=== PATIENT | male | born 1945 | race Caucasian/White ===

== ENCOUNTER 2020-10-30 11:08 | Outpatient (CLI) | payer MEDICARE, SELFPAY ==
--- NOTE | ~2020-10-30 | US_ITS ---
EXAMINATION: US scrotum doppler DATE: 10/30/2020 11:55 INDICATION: Scrotal pain and swelling after heavy lifting TECHNIQUE: Testicular sonogram utilizing grayscale and Doppler COMPARISON: None. FINDINGS: The right testis measures 4.2 x 2.6 x 2.8 cm. The left testis measures 4.0 x 2.6 x 3.0 cm. Symmetric normal grayscale appearance to both testes. There is normal vascular flow to both testes. 5 mm anecho ic epididymal cyst at the head of the right epididymis. The right epididymis is otherwise normal with normal vascular flow. The left epididymis is normal with normal vascular flow. There is no varicocel e or right hydrocele. Small mildly complex left hydrocele with a few thin internal septations. There are bilateral fat-containing inguinal hernias on prior CT, the caudal aspect of which appears to be v isible along the left spermatic cord near the base of the scrotum. IMPRESSION: 1. Nonspecific small mildly complex left hydrocele with a few thin internal septations suggesting an exudative process. 2. 5 mm right epididymal cyst. Otherwise normal bilateral epididymides and testes. 3. Bilateral fat-containing inguinal hernias seen on prior CT, the caudal margin of which appears to be visible along the left spermatic cord. Reviewed, dictated and finalized at location A. IMPRESSION: 1. Nonspecific small mildly complex left hydrocele with a few thin internal se ptations suggesting an exudative process. 2. 5 mm right epididymal cyst. Otherwise normal bilateral epididymides and test es. 3. Bilateral fat-containing inguinal hernias seen on prior CT, the caudal ange n of which appears to be visible along the left spermatic cord.
== END 2020-10-30 11:09 | disposition home or self-care (01) ==
LOC: ANHIMG 11:11
PROVIDERS: PCP Internal Medicine; Visit Provider Nurse Practitioner
DX: L72.0 Epidermal cyst (principal); K40.90 Unilateral inguinal hernia, without obstruction or gangrene, not specified as recurrent
CPT/HCPCS: 76870; 93976

== ENCOUNTER 2022-08-21 08:22 | Outpatient (CLI) | payer MEDICARE, SELFPAY ==
--- NOTE | ~2022-08-21 | XR_ITS ---
Left Hand Technique: PA and lateral views were obtained. Clinical History: Pain Findings: No acute fracture or dislocation is seen. There is advanced degenerative change of the thir d, fourth, and fifth DIP joints. There is advanced degenerative change of the first CMC joint. Mild d egenerative change of the PIP joints noted. Soft tissues are unremarkable. Impression: No fracture or dislocation. Degenerative changes, as detailed above, worst at the second through fifth DIP joints and first CMC j oint. Reviewed, dictated and finalized at location M. R CUP MACHINE TENDER Impression: No fracture or dislocation. Degenerative changes, as detailed above, worst at the second through fifth DIP joints and first CMC joint.
--- NOTE | ~2022-08-21 | XR_ITS ---
Right Hand Technique: PA and lateral views were obtained. Clinical History: Pain Findings: No acute fracture or dislocation is seen. There is advanced osteoarthritis of the first CMC joint, as well as of the DIP joints of the second through fifth digits. Soft tissues are unremarkabl e. Impression: No fracture or dislocation. 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 Reviewed, dictated and finalized at location . GER OF MERCHANDISING Impression: No fracture or dislocation. 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
== END 2022-08-21 08:23 | disposition home or self-care (01) ==
PROVIDERS: PCP Nurse Practitioner Family; Visit Provider Nurse Practitioner Family
DX: M79.642 Pain in left hand (principal); M79.641 Pain in right hand; M19.042 Primary osteoarthritis, left hand; M19.041 Primary osteoarthritis, right hand
CPT/HCPCS: 73120

== ENCOUNTER 2022-10-20 08:55 | Outpatient (CLI) | payer MEDICARE, SELFPAY ==
--- NOTE | 2022-10-20 11:00 | NEURO_ITS ---
Impression: # Complains of pain in hands with arthritis. # Bilateral Carpal Tunnel Syndrome. # No ulnar neuropathy. # Normal needle/EMG exam. Nerve Conduction Studies Anti Sensory Summary Table Stim Site NR Peak (ms) P-T Amp (?V) Site1 Site2 Delta-P (ms) Dist (cm) Benedict (m/s) Left Median Anti Sensory (2-3nd Digit) Wrist 4.3 15.6 Wrist 2-3nd Digit 4.3 14.0 33 Wrist 4.2 29.6 Wrist 2-3nd Digit 4.3 14.0 33 Right Median Anti Sensory (2-3nd Digit) Wrist 3.9 25.0 Wrist 2-3nd Digit 3.9 14.0 36 Wrist 4.6 9.7 Wrist 2-3nd Digit 3.9 14.0 36 Left Radial Anti Sensory (Base 1st Digit) Wrist 2.3 19.6 Wrist Base 1st Digit 2.3 0.0 Right Radial Anti Sensory (Base 1st Digit) Wrist 2.4 10.7 Wrist Base 1st Digit 2.4 0.0 Left Ulnar Anti Sensory (5th Digit) Wrist 2.3 21.5 Wrist 5th Digit 2.3 14.0 61 Right Ulnar Anti Sensory (5th Digit) Wrist 2.7 20.9 Wrist 5th Digit 2.7 14.0 52 Motor Summary Table Stim Site NR Onset (ms) O-P Amp (mV) Site1 Site2 Delta-0 (ms) Dist (cm) Benedict (m/s) Left Median Motor (Abd Poll Brev) Wrist 4.0 3.1 Elbow Wrist 5.3 29.0 55 Elbow 9.3 2.4 Right Median Motor (Abd Poll Brev) Wrist 4.3 1.2 Elbow Wrist 5.4 29.0 54 Elbow 9.7 1.1 Left Ulnar Motor (Abd Dig Minimi) Wrist 2.7 7.8 A Elbow Wrist 5.3 30.0 57 A Elbow 8.0 6.4 Right Ulnar Motor (Abd Dig Minimi) Wrist 2.8 3.6 A Elbow Wrist 5.2 30.0 58 A Elbow 8.0 3.2 F Wave Studies NR F-Lat (ms) L-R F-Lat (ms) Left Median (Mrkrs) (Abd Poll Brev) 29.11 0.74 Right Median (Mrkrs) (Abd Poll Brev) 29.84 0.74 Left Ulnar (Mrkrs) (Abd Dig Min) 30.82 0.02 Right Ulnar (Mrkrs) (Abd Dig Min) 30.81 0.02 EMG Side Muscle Nerve Root Ins Act Fibs Amp Dur Recrt Comment Right 1stDorInt Ulnar C8-T1 Nml Nml Nml Nml Nml Right Ext Indicis Radial (Post Int) C7-8 Nml Nml Nml Nml Nml Right Ext Digitorum Radial (Post Int) C7-8 Nml Nml Nml Nml Nml Right BrachioRad Radial C5-6 Nml Nml Nml Nml Nml Right PronatorTeres Median C6-7 Nml Nml Nml Nml Nml Right Abd Poll Brev Median C8-T1 Nml Nml Nml >12ms Reduced Left 1stDorInt Ulnar C8-T1 Nml Nml Nml Nml Nml Left Ext Indicis Radial (Post Int) C7-8 Nml Nml Nml Nml Nml Left Ext Digitorum Radial (Post Int) C7-8 Nml Nml Nml Nml Nml Left BrachioRad Radial C5-6 Nml Nml Nml Nml Nml Left PronatorTeres Median C6-7 Nml Nml Nml Nml Nml Left Abd Poll Brev Median C8-T1 Nml Nml Nml >12ms Reduced Right ABD Dig Min Ulnar C8-T1 Nml Nml Nml Nml Nml Left ABD Dig Min Ulnar C8-T1 Nml Nml Nml Nml Nml MTDD
== END 2022-10-20 08:56 | disposition home or self-care (01) ==
PROVIDERS: PCP Nurse Practitioner Family; Visit Provider Orthopaedic Surgery
DX: R20.8 Other disturbances of skin sensation (principal); G56.03 Carpal tunnel syndrome, bilateral upper limbs
CPT/HCPCS: 95886; 95911

== ENCOUNTER 2023-07-27 10:39 | Outpatient (CLI) | payer MEDICARE, SELFPAY ==
--- NOTE | ~2023-07-27 | US_ITS ---
EXAMINATION: US soft tissue groin LT DATE: 07/27/2023 11:33 INDICATION: Left knee pain. TECHNIQUE: Multiple grayscale and Doppler ultrasound images of the left groin were obtained. COMPARISON: CT dated 06/27/2019 FINDINGS: There is a left inguinal hernia sac which measures up to 3.4 x 2.8 x 1.1 cm . This appears to contain a small amount of fat as well as one on cine images appears to be potentially peristalsing bowel. IMPRESSION: 1. Small left inguinal hernia which appear to contain fat as well as possible segment of peristalsing bowel. Reviewed, dictated and finalized at location A. N RESOURCES SPECIALIST IMPRESSION: 1. Small left inguinal hernia which appear to contain fat as well as possible s egment of peristalsing bowel.
== END 2023-07-27 10:40 | disposition home or self-care (01) ==
PROVIDERS: PCP Nurse Practitioner Family; Visit Provider Nurse Practitioner Family
DX: M25.562 Pain in left knee (principal); R19.09 Other intra-abdominal and pelvic swelling, mass and lump; K40.90 Unilateral inguinal hernia, without obstruction or gangrene, not specified as recurrent
CPT/HCPCS: 76882

== ENCOUNTER 2023-08-11 12:14 | Outpatient (CLI) | payer MEDICARE, SELFPAY ==
--- NOTE | 2023-08-11 12:33 | ECG_ITS ---
Measurements Intervals Kirk Rate: 60 P: 60 FL: 143 QRS: -29 QRSD: 124 T: 52 QT: 425 QTc: 425 Interpretive Statements SINUS RHYTHM BORDERLINE LEFT AXIS DEVIATION [QRS AXIS < -20] INCOMPLETE RIGHT BUNDLE BRANCH BLOCK NONSPECIFIC T-WAVE ABNORMALITY COMPARED TO ECG 06/27/2019 09:02:08 NO SIGNIFICANT CHANGES Electronically Signed On 08-11-2023 15:48:21 DETAIL MANAGER by Bushra Doss M.D.
== END 2023-08-11 12:15 | disposition home or self-care (01) ==
LOC: ANHSURGERY 12:21
PROVIDERS: PCP Nurse Practitioner Family; Visit Provider Surgery
DX: Z01.818 Encounter for other preprocedural examination (principal); I45.10 Unspecified right bundle-branch block; R94.31 Abnormal electrocardiogram [ECG] [EKG]; E78.5 Hyperlipidemia, unspecified; K40.90 Unilateral inguinal hernia, without obstruction or gangrene, not specified as recurrent
CPT/HCPCS: 36415; 86850; 86900; 86901; 93005

== ENCOUNTER 2023-08-12 00:20 | Day surgery (SDC) | payer MEDICARE, SELFPAY ==
[2023-08-10 13:31] VITALS: BMI 26.3
--- NOTE | 2023-08-10 13:49 | PC.NURSE ---
Report to the Outpatient Waiting Room, entrance under the green pavilion located off [facility], at time __6:00AM on date ___08/12/23____. Planned Procedure Time: _8:00AM . Time changes happen often and if your time is changed the preop area will call you the afternoon before. - You and your visitor will be asked to self-screen and do not enter if you have any COVID symptoms. - A mask is optional within the hospital at this time. Patients may have clear liquids (water, carbonated beverages, clear teas, apple juice) until 3 hours prior to surgery with a maximum of 20 ounces. - No food from midnight until time of surgery. Take the following medications with a SIP of water the morning of surgery: ____NONE DO NOT STOP ANY OF YOUR OTHER PRESCRIPTION MEDICATIONS PRIOR TO SURGERY ?EXCEPT THE FOLLOWING Medications to discontinue per physician ___HOLD ALL VITAMINS/SUPPLEMENTS STARTING NOW(08/10/23) Please no make-up, nail georgian, hairspray, perfume, deodorant, or body powder the day of surgery. No jewelry (including any body piercings) or valuables the day of surgery, leave them at home. Please take a shower or bath the night before, or the morning of, surgery with an antibacterial soap. Wear comfortable, loose fitting clothing. - Jewelry must be removed prior to entering the operating room. Rings and piercings that are not removed may be cut off. - The hospital will not accept responsibility for valuables. - Please leave all valuables, including medications, at home the day of surgery. If you are going home after surgery, a licensed test driver must drive you home. - NO public transportation without another adult if you receive anesthesia. - We recommend that an adult stay with you for 24 hours following discharge. - We also recommend that you do not drive, make important decision, drink alcoholic beverages, or take any drugs that were not prescribed by your health care provider for at least 24 hours after your discharge time. Follow any additional instructions given to you from your surgeon. If you or anyone in your household have experienced Covid symptoms in the past week, please notify your surgeon or the nurse liaison at the phone number below for possible testing. Telephone instructions given to ____PATIENT and asked if any additional questions and then verbalized understanding. Patient advised to call surgeon office or pre surgery nurse liaison [phone] if any additional questions.
[2023-08-12] VITALS (9 sets, daily range): BP systolic 138–154; BP diastolic 66–87; PULSE 56–91; RESP 13–18; TEMP 36.4–36.5; O2SAT 98–100
[2023-08-12] MEDS: LACTATED RINGERS 1,000 ML 30 ML IV CONT ×2 (06:30→09:22)
--- NOTE | 2023-08-12 06:40 | WPDANESEPPF ---
Anes - Initial Pre Proc Eval Procedure: Operation Date: 08/12/23 08:00 Proposed Procedures p Laparoscopic Left Inguinal Hernia Repair with Mesh, Davinci Assisted - Riley Rooney DO Date/Time: 08/12/23 06:40 Surgeon: Riley Rooney DO Pre Op Diagnosis: left inguinal hernia Patient Data Age: 78 Gender: M Height: 1.68 m Weight: 74 kg Allergies Allergy/AdvReac Type Severity Reaction Status Date / Time gabapentin Allergy Severe Rash Verified 08/10/23 13:26 neomycin Allergy Unknown Unknown Verified 08/10/23 13:26 Home Medications Medication Instructions Recorded Confirmed Type ezetimibe 10 mg tablet (Zetia) 10 mg PO DAILY #90 tabs 12/25/22 08/10/23 Rx cholecalciferol (vitamin D3) 100 100 mcg PO ONCE 08/10/23 08/10/23 History mcg (4,000 unit) capsule coenzyme Q10 100 mg capsule 100 mg PO DAILY 08/10/23 08/10/23 History (CoQ-10) omega 3-hvh-opk-fish oil 1,000 mg 1 cap PO DAILY 08/10/23 08/10/23 History (120 mg-180 mg) capsule (Fish Oil) vitamin E 400 unit tablet 400 unit PO DAILY 08/10/23 08/10/23 History zinc 25 mg tablet 25 mg PO DAILY 08/10/23 08/10/23 History Patient hx anesthesia problems: none Family hx anesthesia problems: none Results Review: All pre-operative results and documents have been reviewed as part of the pre-operative evaluation. [facility] Past Medical History Medical History Aneurysm of infrarenal abdominal aorta 3.3 x 3.0 cm fusiform infrarenal abdominal aortic aneurysm on CT and MRI 06/2019. Ultrasound of the abdominal aorta on 08/07/2021 was normal with no evidence of aneurysm Bilateral hand pain BMI 25.0-25.9,adult Colon cancer screening Cologuard on 07/24/2023 was negative, recheck 3 years. Elevated fasting glucose Encounter to establish care HLD (hyperlipidemia) Left renal mass Lump in the groin Need for hepatitis C screening test Nocturia Numbness and tingling in left hand Osteoarthritis involving multiple joints on both sides of body Posterior left knee pain Skin lesion of back Soft tissue mass Wellness examination Surgical History Surgical History Hx of tonsillectomy Social History Social History Smoking packs per day: 1 Smoking cigarettes per day: 20.0 Years smoked: 25 Smoking pack-years: 25.00 Smoking status: Former smoker Tobacco type: cigarettes Smoking end date: 06/22/88 Alcohol intake: current Drinks per week: 3 Alcohol use details: Rarely Substance use: never Substance use type: does not use Lack of Transportation: No Lack of Food: Never True Current Housing: I Have Housing Concerned About Future Housing: No Difficulty Paying Gas/Electric Bills: No Difficulty Paying for Meds: No Currently Unemployed: No Education: High School Diploma/GED Difficulty w/ Childcare or Family Care: No Living arrangements: with family Additional living arrangements comments: Spiritual care concerns: No Anes - Eval Final PreProcedure Day of Procedure 08/12/23 06:40 Patient weight: normal Heart: regular rate and rhythm Lungs: clear to auscultation Airway: Mallampati scale class III Neurological: alert and oriented Last oral intake: >/= 8 hours ASA classification: II Emergent: no Anesthetic plan: proceed Anesthesia type and monitoring: general ETT and standard monitoring Results Review: All pre-operative results and documents have been reviewed as part of the pre-operative evaluation. Informed Consent: The patient's anesthetic plan and its attendant risks and benefits were discussed with the patient/family/POA. Questions were solicited and answers provided to the satisfaction of the patient/family/POA.
[2023-08-12] MEDS: KETOROLAC 15 MG/ML VIAL (*BKC) IV PUSH (07:00)
[2023-08-12] MEDS: ACETAMINOPHEN 500 MG TABLET 1000 MG PO (07:00)
--- NOTE | 2023-08-12 07:48 | WPDHPUPDATE1 ---
History and Physical Update Update Date/Time: 08/12/23 07:48 History and Physical has been reviewed, including an updated exam of the patient. There are NO changes in the patient's condition. Risks, benefits, and alternatives have been discussed and questions answered. Patient agrees to proceed with procedure.
[2023-08-12] MEDS: ceFAZolin 2 GM/D5W 50 ML 2 GM/50 ML BAG IVPB (08:00)
[2023-08-12] MEDS: BUPIVACAINE/EPINEPHRINE 0.5% 30 ML VIAL INFILTRATE (08:29)
--- NOTE | 2023-08-12 09:13 | W.PM.PROC2 ---
Procedure Note - Detailed Date of Procedure 08/12/23 Pre-op Diagnosis left inguinal hernia Post-op Diagnosis Other (Bilateral indirect inguinal hernia) Procedure Performed Laparoscopic bilateral inguinal hernia repair with mesh, da [place] assisted Surgeon Riley Rooney DO Anesthesia General and Local (0.5% bupivacaine with epinephrine) Indications This is a 78-year-old man who presented with a left groin bulge that he noticed about 2-3 months ago. He 1st noticed this well doing some heavy labor around the house. He was having some occasional discomfort with this. He was found to have a reducible left inguinal hernia on exam. Discussions were made with the patient about treatment options and decision was made to proceed with robotic assisted laparoscopic left inguinal hernia repair with mesh. Findings Upon entering the abdomen laparoscopically, the patient appeared to have bilateral indirect inguinal hernias. Decision was made to repair the left and right inguinal hernias at the same time. A robotic transabdominal preperitoneal approach was utilized for repair. Once a wide enough preperitoneal pocket was created on each side, I then placed a large 3DMax mid mesh overlying each myopectineal orifice. No other abnormalities were noted. No specimens were obtained for pathology. Description of Procedure Procedure as well as risks, benefits, and alternatives were discussed with the patient. Written consent was obtained and placed in chart prior to procedure. Patient was brought back to surgical suite. He was placed supine on operating table. Time-out was done to confirm patient and procedure. He was then intubated by Anesthesia Department. His abdomen was prepped and draped in sterile fashion using chlorhexidine prep. 0.5% bupivacaine with epinephrine was infiltrated at each location for incision. An 8 mm incision was made in the left lateral abdomen, and a 5 mm Optiview trocar was advanced through the abdominal layers under direct visualization. Once inside the abdominal cavity, carbon dioxide insufflation was used to create a pneumoperitoneum. A camera was inserted and the abdominal cavity was inspected. The patient was placed in slight Trendelenburg position. An 8 millimeter incision was made on the right lateral abdomen and an 8 millimeter trocar was inserted under direct visualization. Another 8 millimeter incision was made just superior to the umbilicus and an 8 millimeter trocar was inserted under direct visualization. The 5 mm port was then removed and this was replaced with another 8 mm robotic port. The robotic arms were brought up to the patient's bedside and secured to the ports. The camera and instruments were inserted. I then moved over to the robotic console and took control of the camera and instruments. After careful inspection of the abdominal cavity, I began scoring the peritoneum along the left lower quadrant using scissors with electrocautery. The preperitoneal plane was entered and this was carefully dissected caudally along the inferior epigastric vessels. Careful dissection with scissors with electrocautery and blunt dissection was used to continue this dissection. I dissected far enough laterally to allow for mesh placement, and also dissected medially to identify the pubic arch and José Miguel's ligament. The hernia sac was identified and carefully dissected posteriorly. The cord contents were also identified and the peritoneum was carefully dissected far enough posteriorly to allow for mesh placement. Once an adequate pocket was created, I then placed the mesh within the preperitoneal pocket and carefully unfolded it. The mesh was centered on the hernia defect with adequate overlap circumferentially. The inferior edge of the mesh was inspected to ensure that it was far enough away from the peritoneal edge. The mesh appeared in proper position overlying the entire myopectineal orifice. The mesh was secured using 3-0 Vicryl si
--- NOTE | 2023-08-12 09:43 | SUR.PHASEI ---
0942: Simple mask removed.
[2023-08-12] MEDS: oxyCODONE HCL (*CRX) 5 MG TAB IR PO (10:46)
== END 2023-08-12 11:05 | disposition home or self-care (01) ==
PROVIDERS: PCP Nurse Practitioner Family; Visit Provider Surgery
PROC: 8E0Y4CZ Robotic Assisted Procedure of Lower Extremity, Percutaneous Endoscopic Approach (ICD-10-PCS; CPT 49650; principal; 2023-08-12 08:00)
DX: K40.90 Unilateral inguinal hernia, without obstruction or gangrene, not specified as recurrent (principal); E78.5 Hyperlipidemia, unspecified; Z87.891 Personal history of nicotine dependence
CPT/HCPCS: 49650; S2900; 36415; 86850; 86900; 86901; 93005; A9270; C1781; J0690; J1100; J1885; J2405; J3010; J7030; J7120